=== PATIENT | female | born 1970 | race Caucasian/White ===

== ENCOUNTER 2019-11-28 22:02 | Observation (INO) | payer MEDICAID ==
--- NOTE | 2019-11-28 22:16 | EDM.PDOC ---
ED HPI GENERAL MEDICAL PROBLEM - General Chief Complaint: Neuro Symptoms/Deficits Stated Complaint: STROKE CODE Time Seen by Provider: 11/28/19 22:07 - History of Present Illness INITIAL COMMENTS - FREE TEXT/NARRATIVE: The patient is a 49-year-old female who presents to the ER for speech slurring. Last seen normal at 730. The patient states that she woke up and she is having difficulty with her speech. She states that she has a previous history of TIAs which were confirmed with MRI. She denies any unilateral weakness, or facial droop. No unusual headaches, no visual changes, no difficulty with walking, no chest pain or palpitations, just the speech slurring. - Related Data Allergies Allergy/AdvReac Type Severity Reaction Status Date / Time No Known Allergies Allergy Verified 11/28/19 22:28 Home Meds: Home Meds Aspirin 81 mg PO DAILY 11/28/19 [History] Lisinopril [Zestril] 10 mg PO 11/28/19 [History] Metoprolol Tartrate [Lopressor] 50 mg PO BID 11/28/19 [History] Sertraline [Zoloft] 100 mg PO DAILY 11/28/19 [History] busPIRone [Buspar] 10 mg PO DAILY 11/28/19 [History] hydroCHLOROthiazide [Hydrochlorothiazide] 12.5 mg PO DAILY 11/28/19 [History] ED ROS GENERAL - Review of Systems Review Of Systems: See Below Free Text/Narrative/Comment: Positive for speech slurring, negative for facial droop, negative for trauma, negative for headache, negative for visual changes, negative for unilateral weakness, negative for palpitations, all other Positives and pertinent negatives as per HPI. All other pertinent systems were reviewed and are negative ED EXAM, NEURO - Physical Exam Exam: See Below Text/Narrative:: Constitutional: No acute distress, Non-toxic appearance,: Tearful and appears anxious HEENT.: Normocephalic, PERRL, EOMI, External ears are atraumatic, nares are patent without epistaxis Neck: Normal range of motion, Trachea Midline, No stridor Respiratory.: No respiratory distress, No tachypnea, Lungs Clear to Auscultation bilaterally without wheezes, rales, or rhonchi Cardiovascular.: Regular rate and Rhythm without murmurs, rubs, or gallops, good peripheral perfusion GI: Abdomen soft and non tender, obese Genital Urinary: Deferred Musculoskeletal: Good range of motion. All 4 extremities present and atraumatic , no edema Back: Full Range of Motion Skin: Warm, Dry, Color is ethnicity appropriate, No acute rash. Lymphatic: No lymphadenopathy noted Neurological: Alert, Awake and oriented x 3, cranial nerves grossly intact, no expressive aphasia, normal gait, no focal deficits noted appreciate, GCS 15 Psych: Cooperative, tearful and appears anxious, not psychotic *Q Meaningful Use (ADM) - VTE Risk Assess *Q Each Risk Factor Represents 1 Point: Age 41 - 59 years Total Score 1 Point Risk Factors: 1 Course - Vital Signs Text/Narrative:: Upon arrival the patient's NIH is 1 given the subjective expressive aphasia but the rest of her neurological exam is unremarkable. Does have a history of TIAs confirmed by MRI. At this time her CT scan is negative and she remains stable so she will be admitted to the hospital for observation purposes and reevaluation and treatment as appropriate. An aspirin will be given in the ER. Last Recorded V/S: Last Vital Signs Temp 35.9 C 11/28/19 22:02 Pulse 86 11/28/19 22:20 Resp 18 11/28/19 22:20 BP 158/88 H 11/28/19 22:20 Pulse Ox 98 11/28/19 22:20 - Orders/Labs/Meds Orders: Active Orders 24 hr Category Date Time Status Admission Status [Patient Status] [ADT] Stat ADT 11/28/19 23:44 Ordered EKG Documentation Completion [RC] STAT Care 11/28/19 22:05 Active Labs: Laboratory Tests 11/28/19 11/28/19 Range/Units 22:20 22:20 WBC 12.45 H (4.0-11.0) K/uL RBC 4.94 (4.30-5.90) M/uL Hgb 15.2 (12.0-16.0) g/dL Hct 45.5 (36.0-46.0) % MCV 92.1 (80.0-98.0) fL MCH 30.8 (27.0-32.0) pg MCHC 33.4 (31.0-37.0) g/dL RDW Std Deviation 45.2 (28.0-62.0) fl RDW Coeff of Jaquelin 14 (11.0-15.0) % Plt Count 266 (150-400) K/uL MPV 10.70 (7.40-12.00) fL Neut % (Auto) 55.1 (48.0-80.0) % Lymph % (Auto) 35.5 (16.0-40.0) % [place] % (Auto) 6.7 (0.0-15.0) % Eos % (Auto) 2.3 (0.0-7.0) % Baso % (Auto) 0.4 (0.0-1.5) % Neut # (Auto) 6.9 H (1.4-5.7) K/uL Lymph # (Auto) 4.4 H (0.6-2.4) K/uL [place] # (Auto) 0.8 (0.0-0.8) K/uL Eos # (Auto) 0.3 (0.0-0.7) K/uL Baso # (Auto) 0.1 (0.0-0.1) K/uL Nucleated RBC % 0.0 /100WBC Nucleated RBCs # 0 K/uL Sodium 142 (136-145) mmol/L Potassium 4.1 (3.5-5.1) mmol/L Chloride 109 H (98-107) mmol/L Carbon Dioxide 20.4 L (21.0-32.0) mmol/L BUN 26 H (7.0-18.0) mg/dL Creatinine 0.9 (0.6-1.0) mg/dL Est Cr Clr Drug Dosing TNP Estimated GFR (MDRD) > 60.0 ml/min Glucose 125 H (74-106) mg/dL Calcium 9.6 (8.5-10.1) mg/dL Total Bilirubin 0.4 (0.2-1.0) mg/dL AST 14 L (15-37) IU/L ALT 27 (14-63) IU/L Alkaline Phosphatase 57 (46-116) U/L Troponin I < 0.050 (0.000-0.056) ng/mL Total Protein 7.4 (6.4-8.2) g/dL Albumin 3.7 (3.4-5.0) g/dL Globulin 3.7 (2.6-4.0) g/dL Albumin/Globulin Ratio 1.0 (0.9-1.6) Departure - Departure Time of Disposition: 23:39 Disposition: Refer to Observation Condition: Good Clinical Impression: TIA (transient ischemic attack) - Discharge Information Referrals: PCP,Unknown [Primary Care Provider] - Forms: ED Department Discharge Sepsis Event Note - Focused Exam Vital Signs: Vital Signs Temp Pulse Resp BP Pulse Ox 11/28/19 22:20 86 18 158/88 H 98 11/28/19 22:02 35.9 C 91 18 164/72 H 100 Date Exam was Performed: 11/28/19 Time Exam was Performed: 23:46 - My Orders Last 24 Hours: My Active Orders 11/28/19 22:05 EKG Documentation Completion [RC] STAT 11/28/19 23:44 Admission Status [Patient Status] [ADT] Stat - Assessment/Plan Last 24 Hours: My Active Orders 11/28/19 22:05 EKG Documentation Completion [RC] STAT 11/28/19 23:44 Admission Status [Patient Status] [ADT] Stat
--- NOTE | 2019-11-28 22:49 | CT ---
Indication: Slurred speech, history of TIA Technique: Nonenhanced axial CT imaging through the head. Sagittal and coronal reconstructions are provided. Comparison: None Findings: There is no intracranial hemorrhage, edema, or mass effect. There is normal attenuation of the brain parenchyma. [place]-white matter differentiation is preserved. The ventricles are normal in size. The basal cisterns are patent. The calvarium is intact. The mastoid air cells are well aerated. Mucous retention cyst is noted in the right sphenoid sinus. Impression: No intracranial hemorrhage or loss of abarca-white matter differentiation. Please note that all CT scans at this facility use dose modulation, iterative reconstruction, and/or weight-based dosing when appropriate to reduce radiation dose to as low as reasonably achievable. Dictated by Heath Hampton MD @ Nov 28 2019 10:44PM Signed by Dr. Heath Hampton @ Nov 28 2019 10:48PM
--- NOTE | 2019-11-28 22:51 | CR ---
Indication: Stroke code. Slurred speech. History of TIA and stroke. Technique: Single AP portable view of the chest. Comparison: None Findings: The heart is normal in size. The lungs are clear. No infiltrate, pleural effusion, or pneumothorax is identified. Impression: No acute cardiopulmonary process. Dictated by Georgia Archibald MD @ Nov 28 2019 10:50PM Signed by Dr. Georgia Archibald @ Nov 28 2019 10:50PM
[2019-11-28 23:00] LABS: BLOOD UREA NITROGEN,BUN 26 mg/dL (7.0-18.0); CARBON DIOXIDE,CO2 20.4 mmol/L (21.0-32.0); CHLORIDE,CL 109 mmol/L (98-107); GLUCOSE RANDOM 125 mg/dL (74-106); POTASSIUM,K 4.1 mmol/L (3.5-5.1); SODIUM,NA 142 mmol/L (136-145)
[2019-11-28] MEDS ORDERED: fentaNYL 100 MCG/2 ML SDV IVPUSH STA (23:38)
[2019-11-28] MEDS ORDERED: Aspirin 325 MG Tab PO ONE (23:49)
--- NOTE | 2019-11-29 08:12 | PCM.HP.2 ---
H&P History of Present Illness - General Date of Service: 11/29/19 Admit Problem/Dx: Admission Diagnosis/Problem Admission Diagnosis/Problem TIA, Transient ischemic attack - History of Present Illness Initial Comments - Free Text/Narative: The patient is a 49 year old female who presented to the ER with slurred speech and facial droop. She states she went to bed around 730 and was normal, her daughter called her at 930, thought she had slurred speech and told her to go to the ER. She did have a headache yesterday. She denies extremity weakness, trouble ambulating, vision changes, chest pain, shortness of breath, or abdominal pain. Hx of stroke January 2019 in [place], had issues with speech for some time after that but got better. Was supposed to take aspirin, BP medication and statin. Hasn't taken statin for past 6 months. Denies hx of diabetes. In the ER, work up showed leukocytosis of 12.5 but no anemia. Elevated BUN, negative trop, negative CXR, negative CT head. EKG showed NSR no ST changes, no Afib. Given aspirin in ER. PCP- has not establish care in [place], moved here less than a month ago - Related Data Allergies/Adverse Reactions: Allergies Allergy/AdvReac Type Severity Reaction Status Date / Time No Known Allergies Allergy Verified 11/29/19 00:52 Home Medications: Home Meds Aspirin 81 mg PO DAILY 11/28/19 [History] Lisinopril [Zestril] 10 mg PO DAILY 11/28/19 [History] Metoprolol Tartrate [Lopressor] 50 mg PO BID 11/28/19 [History] Sertraline [Zoloft] 100 mg PO DAILY 11/28/19 [History] busPIRone [Buspar] 10 mg PO DAILY 11/28/19 [History] hydroCHLOROthiazide [Hydrochlorothiazide] 12.5 mg PO DAILY 11/28/19 [History] Past Medical History HEENT History: Reports: None Cardiovascular History: Reports: High Cholesterol, Hypertension Respiratory History: Reports: None 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: Musculoskeletal History: Reports: None Neurological History: Reports: CVA, TIA Psychiatric History: Reports: Anxiety, Depression Endocrine/Metabolic History: Reports: None Do You Give Correction Boluses or Sliding Scale: No Hematologic History: Reports: None Immunologic History: Reports: None Oncologic (Cancer) History: Reports: None - Infectious Disease History Infectious Disease History: Reports: Chicken Pox - Past Surgical History Head Surgeries/Procedures: Reports: None GI Surgical History: Reports: Cholecystectomy Female Surgical History: Reports: Tubal Ligation Dermatological Surgical History: Reports: None Social & Family History - Family History Cardiac: Reports: CAD, High Cholesterol, Hypertension, [place] OBGYN: Reports: Musculoskeletal: Reports: Osteoarthritis Neurological: Reports: Alzheimers Disease, CVA, TIA Endocrine/Metabolic: Reports: Diabetes, Type I, Diabetes, type II, Hypoparathyroidism, Hypothyroidism Oncologic: Reports: Breast, Cervix - Tobacco Use Smoking Status *Q: Current Every Day Smoker Years of Tobacco use: 10 Packs/Tins Daily: 0.2 Used Tobacco, but Quit: No Second Hand Smoke Exposure: No - Caffeine Use Caffeine Use: Reports: Coffee - Alcohol Use Days Per Week of Alcohol Use: 2 Number of Drinks Per Day: 0 Total Drinks Per Week: 0 - Recreational Drug Use Recreational Drug Use: No H&P Review of Systems - Review of Systems: Review Of Systems: See Below General: Reports: No Symptoms HEENT: Reports: No Symptoms Pulmonary: Reports: No Symptoms Cardiovascular: Reports: No Symptoms Gastrointestinal: Reports: No Symptoms Genitourinary: Reports: No Symptoms Musculoskeletal: Reports: No Symptoms Skin: Reports: No Symptoms Neurological: Reports: Trouble Speaking, Other (facial droop) Hematologic/Lymphatic: Reports: No Symptoms Immunologic: Reports: No Symptoms Exam - Exam Exam: See Below - Vital Signs Vital Signs: Last Vital Signs Temp 97.9 F 11/29/19 07:15 Pulse 57 L 11/29/19 07:15 Resp 17 11/29/19 07:15 BP 132/63 11/29/19 07:15 Pulse Ox 95 11/29/19 07:15 Weight: 88.8 kg - Exam General: Alert, Oriented, Cooperative, Lethargic HEENT: Conjunctiva Clear, EOMI, Mucosa Moist & [place], Posterior Pharynx Clear, Pupils Equal, Pupils Reactive Neck: Supple, Trachea Midline Lungs: Clear to Auscultation, Normal Respiratory Effort Cardiovascular: Regular Rate, Regular Rhythm GI/Abdominal Exam: Normal Bowel Sounds, Soft, Non-Tender, No Distention Extremities: Normal Inspection, No Pedal Edema Skin: Warm, Dry, Intact Neurological: Cranial Nerves Intact, Reflexes Equal Bilateral, Strength Equal Bilateral Neuro Extensive - Mental Status: Alert, Oriented x3 Neuro Extensive - Motor, Sensory, Reflexes: CN II-XII Intact, Dysarthria, Facial palsy (L). No: Tongue Deviation (L), Tongue Deviation (R), Pronator Drift (R), Pronator Drift (L), Abnormal Finger to Nose, Abnormal Heel to [place] Psychiatric: Alert, Normal Affect, Normal Mood - Patient Data Lab Results Last 24 hrs: Laboratory Results - last 24 hr 11/28/19 11/28/19 11/29/19 Range/Units 22:20 22:20 07:34 WBC 12.45 H 10.50 (4.0-11.0) K/uL RBC 4.94 4.67 (4.30-5.90) M/uL Hgb 15.2 14.5 (12.0-16.0) g/dL Hct 45.5 43.4 (36.0-46.0) % MCV 92.1 92.9 (80.0-98.0) fL MCH 30.8 31.0 (27.0-32.0) pg MCHC 33.4 33.4 (31.0-37.0) g/dL RDW Std Deviation 45.2 45.8 (28.0-62.0) fl RDW Coeff of Jaquelin 14 14 (11.0-15.0) % Plt Count 266 239 (150-400) K/uL MPV 10.70 10.60 (7.40-12.00) fL Neut % (Auto) 55.1 59.9 (48.0-80.0) % Lymph % (Auto) 35.5 31.0 (16.0-40.0) % [place] % (Auto) 6.7 6.0 (0.0-15.0) % Eos % (Auto) 2.3 2.8 (0.0-7.0) % Baso % (Auto) 0.4 0.3 (0.0-1.5) % Neut # (Auto) 6.9 H 6.3 H (1.4-5.7) K/uL Lymph # (Auto) 4.4 H 3.3 H (0.6-2.4) K/uL [place] # (Auto) 0.8 0.6 (0.0-0.8) K/uL Eos # (Auto) 0.3 0.3 (0.0-0.7) K/uL Baso # (Auto) 0.1 0.0 (0.0-0.1) K/uL Nucleated RBC % 0.0 0.0 /100WBC Nucleated RBCs # 0 0 K/uL Sodium 142 (136-145) mmol/L Potassium 4.1 (3.5-5.1) mmol/L Chloride 109 H (98-107) mmol/L Carbon Dioxide 20.4 L (21.0-32.0) mmol/L BUN 26 H (7.0-18.0) mg/dL Creatinine 0.9 (0.6-1.0) mg/dL Est Cr Clr Drug Dosing TNP Estimated GFR (MDRD) > 60.0 ml/min Glucose 125 H (74-106) mg/dL Calcium 9.6 (8.5-10.1) mg/dL Total Bilirubin 0.4 (0.2-1.0) mg/dL AST 14 L (15-37) IU/L ALT 27 (14-63) IU/L Alkaline Phosphatase 57 (46-116) U/L Troponin I < 0.050 (0.000-0.056) ng/mL Total Protein 7.4 (6.4-8.2) g/dL Albumin 3.7 (3.4-5.0) g/dL Globulin 3.7 (2.6-4.0) g/dL Albumin/Globulin Ratio 1.0 (0.9-1.6) Result Diagrams: 11/29/19 07:34 11/29/19 07:34 Sepsis Event Note - Evaluation Sepsis Screening Result: No Definite Risk - Focused Exam Vital Signs: Vital Signs Temp Pulse Resp BP Pulse Ox 11/29/19 07:15 97.9 F 57 L 17 132/63 95 11/29/19 04:30 97.9 F 64 17 131/64 97 11/29/19 00:26 96.9 F 65 16 137/66 97 11/28/19 23:58 97.2 F 52 L 18 141/75 H 97 11/28/19 23:15 54 L 18 136/72 98 11/28/19 22:50 56 L 18 156/91 H 98 01/16/20 22:20 86 18 158/88 H 98 11/28/19 22:02 96.6 F 91 18 164/72 H 100 Date Exam was Performed: 11/29/19 Time Exam was Performed: 11:16 Problem List Initiated/Reviewed/Updated: Yes Orders Last 24hrs: Active Orders 24 hr Category Date Time Status Admission Status [Patient Status] [ADT] Stat ADT 11/28/19 23:44 Active EKG Documentation Completion [RC] STAT Care 11/28/19 22:05 Active Nursing Bedside Swallow Screen [RC] ASDIRECTED Care 11/29/19 08:04 Active Telemetry Monitoring [Cardiac Monitoring] [RC] Q8H Care 11/29/19 00:10 Active Consult to Speech Language Pathology [METER CALIBRATOR Evaluation Cons 11/29/19 08:04 Active and Treatment] [CONS] Routine Regular Diet [DIET] Diet 11/29/19 Breakfast Active Ang Head wo Cont [MR] Stat Exams 11/29/19 08:02 Ordered Brain w wo Cont [MR] Stat Exams 11/29/19 08:02 Ordered MRA Neck Without Contrast [Ang Neck wo Cont] [MR] Stat Exams 11/29/19 08:02 Ordered BASIC METABOLIC PANEL,BMP [CHEM] Stat Lab 11/29/19 07:34 Received LIPID PANEL [CHEM] Stat Lab 11/29/19 07:34 Received UA RFX TERRENCE AND CULT IF INDIC [URIN] Routine Lab 11/29/19 07:24 Ordered Aspirin Med 11/29/19 09:00 Active 81 mg PO DAILY Medication Orders Aspirin (Aspirin) 81 mg PO DAILY REMY Assessment/Plan Comment:: 1. Admit 2. Code status- DNR/DNI 3. Vitals per routine 4. I/Os per routine 5. Diet- regular after swallow study 6. DVT prophylaxis with Lovenox 7. Slurred speech/facial droop- TIA vs stroke- head CT negative, will obtain MRI brain with and without contrast and MRA head/neck without contrast. Consult speech therapy. Patient has no extremity weakness and is ambulating without issue so no need for PT/OT at this time. Will monitor on telemetry and check lipid panel. Patient will be started on statin. Hold BP meds to allow for permissive HTN. Will need outpatient neurology consult. 8. Leukocytosis- resolved, UA pending 9. HTN- hold home meds to allow for permissive HTN
[2019-11-29 08:15] LABS: BLOOD UREA NITROGEN,BUN 20 mg/dL (7.0-18.0); CARBON DIOXIDE,CO2 22.2 mmol/L (21.0-32.0); CHLORIDE,CL 108 mmol/L (98-107); GLUCOSE RANDOM 121 mg/dL (74-106); POTASSIUM,K 4.4 mmol/L (3.5-5.1); SODIUM,NA 142 mmol/L (136-145)
[2019-11-29] MEDS: Aspirin 81 MG Tab.Chew PO SCH (08:42)
[2019-11-29] MEDS: Enoxaparin 40 MG/0.4 ML Syringe SUBCUT SCH (11:27)
[2019-11-29] MEDS ORDERED: Gadobenate Dimeglumine 529 MG/ML 20 ML SDV IVPUSH STA (13:14)
--- NOTE | 2019-11-29 15:05 | MR ---
MR angiogram of neck Technique: [id number] MR angiogram study was obtained centered at the [place]. Findings: Carotid bulbs and internal carotid arteries show no focal stenosis. No further comments can be made. Note made that MR angiogram of the neck is best evaluated as a contrast study. Impression: 1. No focal stenosis within the carotid bulbs or within the internal carotid arteries. 2. Common carotid arteries and vertebral arteries are not seen. Note: As mentioned above, MRI angiogram study of the neck is best performed as a contrast study. Diagnostic code #2 This report was dictated in [place] Standard Time
--- NOTE | 2019-11-29 15:05 | MR ---
MRI brain (without and with contrast) Technique: T1 sagittal and coronal; T1, T2, FLAIR and diffusion axial images were obtained through the brain. Additional T1 coronal, sagittal and axial images were obtained after contrast administration. Findings: Motion artifact is noted. Retention cyst is noted within the sphenoid sinus measuring 1.7 cm. Ventricles along with basal cisterns and sulci over convexities are within normal limits. Normal signal void is seen within the major cerebral arteries within the skull base. There is an acute diffusion abnormality being seen within the medial right temporal lobe as well as several additional subcortical white matter infarcts within the right parietal region. Additional small cortical diffusion abnormality seen within the right parietal region. Findings are compatible with fairly recent infarcts. There is mild increased signal on the FLAIR sequence noted within these abnormal diffusion areas compatible with nonreversible change. No other abnormal signal is seen within the brain parenchyma. No midline shift or mass effect is seen. No abnormal areas of enhancement are seen. Impression: 1. Fairly acute infarcts involving the medial right temporal lobe, subcortical white matter within the right parietal region as well as small area of cortical infarct within the right parietal region. These appear nonreversible as mild increased signal is seen within the FLAIR sequence is noted. 2. Retention cyst within the sphenoid sinus. 3. No additional abnormality appreciated on MRI study of the brain. Diagnostic code #5 This report was dictated in [place] Standard Time
--- NOTE | 2019-11-29 15:05 | MR ---
MRI angiogram of brain Technique: [id number] MR angiogram study was obtained centered to the [place] of [place]. Multiple MIP images were obtained. Findings: 2 patent vertebral arteries as well as patent basilar artery. Posterior cerebral arteries appear patent. Distal internal carotid arteries are patent. Anterior and middle cerebral arteries are patent. No focal area of stenosis or occlusion is seen. No discrete aneurysm is appreciated. Impression: 1. No abnormality is identified on MR angiogram study of the brain. Diagnostic code #1 This report was dictated in [place] Standard Time
[2019-11-29] MEDS ORDERED: atorvaSTATin 40 MG Tab PO SCH (21:00)
[2019-11-30 06:41] LABS: BLOOD UREA NITROGEN,BUN 19 mg/dL (7.0-18.0); CARBON DIOXIDE,CO2 23.4 mmol/L (21.0-32.0); CHLORIDE,CL 107 mmol/L (98-107); GLUCOSE RANDOM 121 mg/dL (74-106); POTASSIUM,K 4.4 mmol/L (3.5-5.1); SODIUM,NA 142 mmol/L (136-145)
[2019-11-30] MEDS: Aspirin 81 MG Tab.Chew PO SCH (08:54)
[2019-11-30] MEDS ORDERED: busPIRone 5 MG Tab PO SCH (09:00)
[2019-11-30] MEDS ORDERED: Sertraline 100 MG Tab PO SCH (09:00)
[2019-11-30] MEDS: Enoxaparin 40 MG/0.4 ML Syringe SUBCUT SCH (11:06)
--- NOTE | 2019-11-30 12:07 | PCM.DCSUM1 ---
Discharge Summary - Discharge Data Discharge Date: 11/30/19 Discharge Disposition: Home, Self-Care 01 Condition: Good - Referral to Home Health Primary Care Physician: PCP Unknown - Patient Summary/Data Consults: Consultations 11/29/19 08:04 Consult to Speech Language Pathology [COLORMAN Evaluation and Treatment] [CONS] Routine 11/29/19 09:16 Consult to Speech Language Pathology [COLORMAN Evaluation and Treatment] [CONS] Routine Hospital Course: 49 year old female who was admitted for acute ischemic stroke. She presented to the ER with a complaint of slurred speech and facial droop. Her symptoms were resolving by the time of admission. Her work up showed leukocytosis of 12.5 with mildly elevated BUN. She had negative troponin, normal CXR, normal CT head. EKG showed normal sinus rhythm with no ST changes. MRI of the brain showed fairly acute infarcts of the right temporal lobe. MRA of head and neck showed no abnormalities. She had no events on telemetry. Her speech returned to normal and today she is requesting discharge. She has a history of strokes in the past but has not been taking her aspirin or statin. She was instructed to resume aspirin and atorvastatin and she was counseled on smoking cessation. She has follow up with Dr. Hair. - Patient Instructions Diet: Usual Diet as Tolerated - Discharge Plan Prescriptions/Med Rec: atorvaSTATin [Lipitor] 80 mg PO BEDTIME #30 tablet Home Medications: Home Meds Aspirin 81 mg PO DAILY 11/28/19 [History] Lisinopril [Zestril] 20 mg PO DAILY 11/28/19 [History] Metoprolol Tartrate [Lopressor] 50 mg PO BID 11/28/19 [History] Sertraline [Zoloft] 100 mg PO DAILY 11/28/19 [History] busPIRone [Buspar] 10 mg PO DAILY 11/28/19 [History] hydroCHLOROthiazide [Hydrochlorothiazide] 25 mg PO DAILY 11/28/19 [History] atorvaSTATin [Lipitor] 80 mg PO BEDTIME #30 tablet 11/30/19 [Rx] Patient Handouts: Steps to Quit Smoking, [id number], Transient Ischemic Attack, [id number]-Agon Referrals: Esha Hair MD [Physician] - 12/19/19 10:00 am Veronica Mancilla PA [Physician Accounting Systems Analyst] - 12/06/19 9:00 am - Discharge Summary/Plan Comment DC Time >30 min.: No - Patient Data Vitals - Most Recent: Last Vital Signs Temp 36.6 C 11/30/19 07:15 Pulse 64 11/30/19 07:15 Resp 16 11/30/19 07:15 BP 143/67 H 11/30/19 07:15 Pulse Ox 97 11/30/19 07:15 Weight - Most Recent: 88.8 kg I&O - Last 24 hours: Intake & Output 11/29/19 11/30/19 11/30/19 22:59 06:59 14:59 Intake Total 100 650 Output Total 300 500 Balance -200 150 Lab Results - Last 24 hrs: Laboratory Results - last 24 hr 11/30/19 11/30/19 11/30/19 Range/Units 00:12 06:00 06:00 WBC 9.09 (4.0-11.0) K/uL RBC 4.79 (4.30-5.90) M/uL Hgb 14.5 (12.0-16.0) g/dL Hct 44.0 (36.0-46.0) % MCV 91.9 (80.0-98.0) fL MCH 30.3 (27.0-32.0) pg MCHC 33.0 (31.0-37.0) g/dL RDW Std Deviation 44.4 (28.0-62.0) fl RDW Coeff of Jaquelin 13 (11.0-15.0) % Plt Count 236 (150-400) K/uL MPV 10.70 (7.40-12.00) fL Neut % (Auto) 60.8 (48.0-80.0) % Lymph % (Auto) 30.1 (16.0-40.0) % [place] % (Auto) 5.9 (0.0-15.0) % Eos % (Auto) 2.8 (0.0-7.0) % Baso % (Auto) 0.4 (0.0-1.5) % Neut # (Auto) 5.5 (1.4-5.7) K/uL Lymph # (Auto) 2.7 H (0.6-2.4) K/uL [place] # (Auto) 0.5 (0.0-0.8) K/uL Eos # (Auto) 0.3 (0.0-0.7) K/uL Baso # (Auto) 0.0 (0.0-0.1) K/uL Nucleated RBC % 0.0 /100WBC Nucleated RBCs # 0 K/uL Sodium 142 (136-145) mmol/L Potassium 4.4 (3.5-5.1) mmol/L Chloride 107 (98-107) mmol/L Carbon Dioxide 23.4 (21.0-32.0) mmol/L BUN 19 H (7.0-18.0) mg/dL Creatinine 0.8 (0.6-1.0) mg/dL Est Cr Clr Drug Dosing 78.23 mL/min Estimated GFR (MDRD) > 60.0 ml/min Glucose 121 H (74-106) mg/dL Calcium 9.0 (8.5-10.1) mg/dL Urine Color RED Urine Appearance CLOUDY Urine pH 5.0 (5.0-8.0) Ur Specific [place] >= 1.030 (1.001-1.035) Urine Protein 30 H (NEGATIVE) mg/dL Urine Glucose (UA) NEGATIVE (NEGATIVE) mg/dL Urine Ketones NEGATIVE (NEGATIVE) mg/dL Urine Occult Blood LARGE H (NEGATIVE) Urine Nitrite NEGATIVE (NEGATIVE) Urine Bilirubin SMALL H (NEGATIVE) Urine Ictotest NEGATIVE Urine Urobilinogen 0.2 (<2.0) EU/dL Ur Leukocyte Esterase NEGATIVE (NEGATIVE) Urine RBC 55-60 (0-2/HPF) Urine WBC 0-2 (0-5/HPF) Ur Epithelial Cells OCCASIONAL (NONE-FEW) Urine Bacteria RARE (NEGATIVE) Urinalysis Comment Med Orders - Current: Current Medications Aspirin (Aspirin) 81 mg PO DAILY [facility] Last Admin: 11/30/19 08:54 Dose: 81 mg Atorvastatin Calcium (Lipitor) 40 mg PO BEDTIME [facility] Last Admin: 11/29/19 20:16 Dose: 40 mg Buspirone HCl (Buspar) 10 mg PO DAILY [facility] Last Admin: 11/30/19 08:54 Dose: 10 mg Enoxaparin Sodium (Lovenox) 40 mg SUBCUT Q24H [facility] Last Admin: 11/30/19 11:06 Dose: 40 mg Sertraline HCl (Zoloft) 100 mg PO DAILY [facility] Last Admin: 11/30/19 08:55 Dose: 100 mg Discontinued Medications Aspirin (Aspirin) 325 mg PO ONETIME ONE Stop: 11/28/19 23:50 Last Admin: 11/28/19 23:54 Dose: 325 mg Gadobenate Dimeglumine (Multihance) 20 ml IVPUSH ONETIME STA Stop: 11/29/19 13:15 Last Admin: 11/29/19 13:20 Dose: 17 ml
== END 2019-11-30 12:40 | disposition home or self-care (01) ==
LOC: MW.ED 22:02 → MW.MS 23:44
PROVIDERS: ADMIT Internal Medicine; ATTEND Internal Medicine
DX: I63.9 Cerebral infarction, unspecified (principal); R47.81 Slurred speech; R29.810 Facial weakness; I10 Essential (primary) hypertension; D72.829 Elevated white blood cell count, unspecified; E78.00 Pure hypercholesterolemia, unspecified; F41.9 Anxiety disorder, unspecified; F32.9 Major depressive disorder, single episode, unspecified; F17.210 Nicotine dependence, cigarettes, uncomplicated; Z79.82 Long term (current) use of aspirin; Z79.899 Other long term (current) drug therapy
CPT/HCPCS: 36415; 70450; 70544; 70547; 70553; 71045; 80048; 80053; 80061; 81001; 84484; 85025; 92610; 93005; A9270; A9577; J1650; 99283